=== PATIENT | female | born 1995 | race Caucasian/White ===

== ENCOUNTER 2021-06-12 08:54 | Emergency (ER) | payer BC ==
[2021-06-12] MEDS ORDERED: Acetaminophen/HYDROcodone 325-5 MG Tab PO ONE (09:27)
[2021-06-12] MEDS ORDERED: Lidocaine 1% 10 ML MDV INJECT ONE (09:30)
[2021-06-12] MEDS ORDERED: HYDROmorphone 0.5 MG/0.5 ML Syringe IM ONE (09:47)
--- NOTE | 2021-06-12 09:56 | EDM.PDOC ---
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 Mild [place]. No LOC. No chest pain or difficulty breathing. Upper Lip Pain Score (Numeric/FACES): 8 - Related Data Allergies Allergy/AdvReac Type Severity Reaction Status Date / Time No Known Allergies Allergy Verified 06/12/21 09:06 Home Meds: Home Meds Anxiety Med. 06/12/21 [History] Hydrocodone/Acetaminophen [HYDROcodone-Acetaminophen 5-325 MG] 1 each PO Q6HR PRN #10 tab 06/12/21 [Rx] Review of Systems - Review of Systems Review Of Systems: See Below Eyes: Reports: No Symptoms Ears: Reports: No Symptoms Nose: Denies: Epistaxis Mouth/Throat: Reports: Other (large laceration R upper lip) Respiratory: Denies: Shortness of Breath, Pleuritic Chest Pain Cardiovascular: Denies: Chest Pain GI/Abdominal: Denies: Abdominal Pain, Nausea, Vomiting Musculoskeletal: Reports: Leg Pain Skin: Reports: Bruising (L leg) Neurological: Denies: Numbness, Tingling, Weakness ED EXAM, GENERAL - Physical Exam Exam: See Below General Appearance: Alert, Moderate Distress Eye Exam: Bilateral Eye: PERRL Ears: Normal External Exam Nose: Normal Inspection Throat/Mouth: Other (2.5 cm deep gaping lac R upper ant lip, does cross verm. border, mildly jagged) Head: Other (mild bruising R maw, mild tenderness, no visual deformity, can move jaw with some discomfort, teeth are stable, no displacement visible, no intraoral bleeding) Neck: Supple, Non-Tender Respiratory/Chest: No Respiratory Distress, Lungs Clear, Normal Breath Sounds Cardiovascular: Regular Rate, Rhythm Extremities: Leg Pain (there is tenderness and mild bruising L ant leg just below the knee. No swelling or deformity, pain with motion, lower leg, ankle, foot nontender, pelvis nontender, knee nontender) Skin Exam: Warm, Dry, Normal Color ED TRAUMA PROCEDURES - Laceration/Wound Repair Right Lower Mouth Lac/Wound Length In cm: 2.5 Appearance: Linear, Irregular, Other (modearately deep) Distal NVT: Neuro & Vascular Intact Anesthetic Type: Local Local Anesthesia - Lidocaine (Xylocaine): 1% Plain Skin Prep: Saline Suture Size: 4-0 # of Sutures: 8 Suture Type: Nylon Course - Vital Signs Last Recorded V/S: Last Vital Signs Temp 98.5 F 06/12/21 09:03 Pulse 90 06/12/21 09:03 Resp 18 06/12/21 09:03 BP 131/87 06/12/21 09:03 Pulse Ox 100 06/12/21 09:03 - Orders/Labs/Meds Meds: Medications Discontinued Medications Generic Name Dose Route Start Last Admin Trade Name Freq PRN Reason Stop Dose Admin Hydrocodone Bitart/Acetaminophen 1 tab 06/12/21 09:27 Acetaminophen/Hydrocodone 325-5 Mg Tab PO 06/12/21 09:28 ONETIME ONE Hydromorphone HCl 0.5 mg 06/12/21 09:47 06/12/21 09:56 Hydromorphone 0.5 Mg/0.5 Ml Syringe IM 06/12/21 09:48 0.5 mg ONETIME ONE Administration Lidocaine HCl 10 ml 06/12/21 09:30 06/12/21 09:56 Lidocaine 1% 10 Ml Mdv INJECT 06/12/21 09:31 10 ml ONETIME ONE Administration Departure - Departure Time of Disposition: 11:14 Disposition: Home, Self-Care 01 Condition: Fair Clinical Impression: Laceration of mouth Qualifiers: Encounter type: initial encounter Qualified Code(s): S01.512A - Laceration without foreign body of oral cavity, initial encounter Contusion of leg, left Qualifiers: Encounter type: initial encounter Qualified Code(s): S80.12XA - Contusion of left lower leg, initial encounter Contusion of face Qualifiers: Encounter type: initial encounter Qualified Code(s): S00.83XA - Contusion of other part of head, initial encounter - Discharge Information Prescriptions: Hydrocodone/Acetaminophen [HYDROcodone-Acetaminophen 5-325 MG] 1 each PO Q6HR PRN #10 tab PRN Reason: Pain Instructions: Mouth Laceration, [id number] Referrals: PCP,None [Primary Care Provider] - Forms: ED Department Discharge Additional Instructions: Laceration care instr. Stitches out in 6 days. Antibiotic ointment 2 to 3 times daily. Ice packs and elevation to help get swelling down more quickly. Tylenol for mild to moderate discomfort or hydrocodone if needed for more severe pain. [facility] [employer] is open 12 noon to 4 PM today. Return to ED as needed if symptoms worsening in any way. Sepsis Event Note (ED) - Evaluation Sepsis Screening Result: No Definite Risk - Focused Exam Vital Signs: Vital Signs Temp Pulse Resp BP Pulse Ox 06/12/21 09:03 98.5 F 90 18 131/87 100
--- NOTE | 2021-06-12 11:16 | CR ---
Mandible: 6 views of the mandible were obtained. Comparison: No previous mandible study. No discrete fracture or other bony abnormality is appreciated. Impression: 1. No definite abnormality is seen on mandible exam. Diagnostic code #1
--- NOTE | 2021-06-12 11:16 | CR ---
Left tibia and fibula: AP and lateral views of the left tibia and fibula were obtained. Comparison: No prior tibia or fibula exam is available. No fracture, dislocation or other bony abnormality is appreciated. Impression: 1. Nothing acute is seen on left tibia and fibula study. Diagnostic code #1
== END 2021-06-12 12:00 | disposition home or self-care (01) ==
LOC: JD.ED 08:54
DX: S01.512A Laceration without foreign body of oral cavity, initial encounter (principal); S80.12XA Contusion of left lower leg, initial encounter; W22.8XXA Striking against or struck by other objects, initial encounter
CPT/HCPCS: 12011; 70110; 73590; 96372; 99283; J1170